=== PATIENT | female | born 1995 | race Caucasian/White ===

== ENCOUNTER 2019-08-28 09:02 | Outpatient (RCR) | payer BC | END 2019-11-01 | LOC: COL.LAB | DX: E34.9 Endocrine disorder, unspecified (principal); N93.9 Abnormal uterine and vaginal bleeding, unspecified; N94.6 Dysmenorrhea, unspecified ==

== ENCOUNTER 2019-08-31 08:05 | Outpatient (RCR) | payer BC | END 2019-11-29 | LOC: COL.LAB | DX: N91.2 Amenorrhea, unspecified (principal) ==

== ENCOUNTER → 2019-10-01 | Outpatient (CLI) | payer BC ==
[2019-10-01 13:03] LABS: FASTING GLUCOSE 96 mg/dL (70-110)
[2019-10-01 13:16] LABS: 1/2 HR GLUCOSE 136 mg/dL (100-170)
[2019-10-01 13:46] LABS: 1 HR GLUCOSE 104 mg/dL (90-160)
[2019-10-04 13:36] LABS: INSULING TOLERANCE 1 HR XXX; INSULING TOLERANCE 2 HR XXX; INSULING TOLERANCE FASTING XXX
== END ==
LOC: COL.LAB 10:57
PROVIDERS: Obstetrics & Gynecology
DX: E28.2 Polycystic ovarian syndrome (principal)

== ENCOUNTER 2021-07-11 17:45 | Outpatient (CLI) | payer BC ==
[~2021-07-11] VITALS: Ht 167.6 cm; Wt 97.7 kg
--- NOTE | 2021-07-11 18:00 | NUR ---
Pt arrived on unit ambulatory and with concerns for SROM. Pt reports leaking fluid since 1700, occasional contractions but denies any vaginal bleeding and reports normal movement. EFM and toco monitors started. Vital signs WNL. SVE by this RN /3 with negative amnio-trace x2. Dr. Bartlett notified. See physician notification for details.
[2021-07-11] MEDS ORDERED: PRENATAL TABLET PO (18:07)
--- NOTE | 2021-07-11 18:30 | NUR ---
Discharge instructions and follow up care reviewed with pt and at the bedside. Both verbalized an understanding, agreed with the plan and states no questions or concerns.
[2021-07-11 18:35] VITALS: BP 114/68; PULSE 92; TEMP 98.2
== END 2021-07-11 18:40 | disposition home or self-care (01) ==
LOC: LDRO 17:45
DX: Z34.93 Encounter for supervision of normal pregnancy, unspecified, third trimester (principal); Z3A.39 39 weeks gestation of pregnancy

== ENCOUNTER 2021-07-13 22:56 | Inpatient (IN) | payer BC ==
[~2021-07-13] VITALS: Ht 167.6 cm; Wt 96.8 kg
[~2021-07-13 22:56] MED LIST: PRENATAL TABLET PO
[2021-07-13 23:10] VITALS: BP 123/67; PULSE 71; TEMP 97.9
--- NOTE | 2021-07-13 23:10 | NUR ---
Pt reports ctx all night last night then "subsided all day and resumed this evening". Bloody show noted on peripad. Pt oriented to room, monitor, plan of care. attentive at bedside. ROM + test performed. SVE as noted.
[2021-07-14] VITALS (16 sets, daily range): BP systolic 106–136; BP diastolic 55–79; PULSE 72–114; TEMP 97.9–98.4
--- NOTE | 2021-07-14 00:20 | NUR ---
SVE with no changes noted, no free fluid, minimal bloody show. Off monitor to move around room.
--- NOTE | 2021-07-14 03:30 | NUR ---
Pt and spouse working together using "Henri Method". Room lights dim, pt moving around room for positions of comfort. Contractions palmate mild-moderate every 2-4 minutes. 0430 Pt declines getting on the bed for monitoring, stating "I was just on the bed " FHT's by doppler while in rocking chair, 130's with audible acceleration.
--- NOTE | 2021-07-14 05:45 | NUR ---
Back to bed for monitoring.0550 declines peanut ball stating "I'm pretty comfortable right now" 0555 Resting quietly with eye closed. attentive at bedside.
--- NOTE | 2021-07-14 06:30 | NUR ---
Report received from CHARLETTE Martins and care assumed. Pt resting in bed and requesting to come off EFM to ambulate and use the birthing ball. Reviewed labor check plan of care and discussed SVE to help determine plan. Pt requesting to sit on the birthing ball for comfort for a little bit before SVE.
--- NOTE | 2021-07-14 07:15 | NUR ---
SVE done by this RN /. Discussion with pt and to determine time of SROM. Pt reports leaking fluid since 07/11, seen on L&D unit with negative amnio-trace and no fluid noted on exam. Pt also reports she was seen in the in office with Dr. Hernandez on Wednesday 07/12 no pooling noted and negative nitrozine test. Pt unable to determine a time when leaking of fluid was different from previous or a large gush of fluid. Information reviewed with Dr. Hardy and it was determined to use time of positive ROM plus test for time of rupture.
[2021-07-14 08:38] LABS: BASO # 0.1 K/mm3 (0.0-0.2); BASO % 0.3 % (0.0-2.0); EOS # 0.1 K/mm3 (0.0-0.7); EOS % 0.5 % (0.0-4.0); GRAN % 89.7 % (42.2-75.2); HEMATOCRIT 38.5 % (37.0-47.0); LYMPH # 0.9 K/mm3 (1.2-3.4); LYMPH % 4.1 % (20.0-51.0); MEAN CELL VOLUME 87 fl (80.0-100.0); MEAN CORPUSCULAR HEMOGLOBIN 29 pg (27-31); MEAN CORPUSCULAR HGB CONC 34 g/dl (33.0-37.0); MONO % 4.6 % (1.7-9.3); PLATELET COUNT 230 K/mm3 (130-400); RED BLOOD COUNT 4.45 M/mm3 (4.10-5.30); REDCELL DISTRIBUTION WIDTH-CV 13.5 % (11.5-14.5)
--- NOTE | 2021-07-14 13:00 | NUR ---
1300- Dr. Hrady at the bedside. SVE done per Dr. Hardy with anterior lip and cervix swelling. 1306- Assisted pt to hands and knees position on bed. This RN remains at the bedside. Frequent attempts to adjust EFM. 1323- Dr. Hardy at the bedside. SVE done with swelling still noted on cervix. Discussed options with pt. 1325- Verbal order for benadryl IV 25mg x1 now received. 1334- Dr. Hardy at the bedside. scalp placed. 1339- Assisted pt to left lateral with right leg in stirrup. 1350- Assisted pt to right lateral with left leg in stirrup. 1359- Dr. Hardy at the bedside. SVE done /+2. Pt set up for delivery. 1401- Pushing started. 1408- of viable male . [place] placed on mom's abdomen. Cords clamped and cut. Care of the given to nursery RN at the bedside. 1415- Straight cath done per Dr. Hardy. 1422- of placenta. Pitocin started at 333ml/hr per order and protocol. Fundus firm and lochia WNL.
--- NOTE | 2021-07-14 16:30 | NUR ---
Pt up to the bathroom with stand by assist and without complications. Pt was not able to void at this time. Angy-care done. Pt transferred to room 207 ambulatory. Oriented to room, bed and call light within reach. Plan of care reviewed.
[2021-07-15 00:15] VITALS: BP 110/64; PULSE 83; TEMP 97.5
[2021-07-15 04:05] VITALS: BP 98/69; PULSE 62; TEMP 97.5
[2021-07-15 07:55] VITALS: BP 110/62; PULSE 78; TEMP 97.6
[2021-07-15] MEDS ORDERED: IBU800 M1 PO (11:33)
[2021-07-15 12:45] VITALS: BP 110/65; PULSE 64; TEMP 97.7
[2021-07-15 16:40] VITALS: BP 111/64; PULSE 77; TEMP 97.9
[2021-07-15 21:00] VITALS: BP 96/50; PULSE 82; TEMP 97.9
[2021-07-16 08:40] VITALS: BP 121/72; PULSE 81; TEMP 97.7
== END 2021-07-16 13:30 | disposition home or self-care (01) | DRG 807 ==
LOC: LDRO 22:56 → LDR 07-14 → LDRO 07-14 07:26 → LDR 07-14 07:27 → OB 07-14 07:27
PROVIDERS: ADMIT Student in an Organized Health Care Education/Training Program
PROC: 10E0XZZ Delivery of Products of Conception, External Approach (ICD-10-PCS; principal; 2021-07-15)
PROC: 0HQ9XZZ Repair Perineum Skin, External Approach (ICD-10-PCS; 2021-07-15)
DX: O99.284 Endocrine, nutritional and metabolic diseases complicating childbirth (principal); Z37.0 Single live birth; E28.2 Polycystic ovarian syndrome; O70.0 First degree perineal laceration during delivery; Z3A.39 39 weeks gestation of pregnancy; Z86.16 Personal history of COVID-19
CPT/HCPCS: J0290; J1200; J2590; J7120

== ENCOUNTER 2023-11-24 17:01 | Emergency (ER) | payer BC ==
[~2023-11-24] VITALS: Ht 167.6 cm; Wt 86.4 kg
[~2023-11-24 17:01] MED LIST changes: +IBU800 M1 PO
[2023-11-24 17:04] VITALS: TEMP 97.9
[2023-11-24 18:30] LABS: BILIRUBIN,TOTAL 0.3 mg/dL (0.2-1.2); CREATININE, serum 0.74 mg/dL (0.57-1.11); TOTAL PROTEIN 7.5 g/dl (6.2-8.1)
[2023-11-24 18:47] LABS: URINE APPEARANCE CLEAR (CLEAR/HAZY); URINE BLOOD NEGATIVE (NEGATIVE); URINE COLOR YELLOW (YELLOW); URINE GLUCOSE NEGATIVE (NEGATIVE); URINE KETONE NEGATIVE (NEGATIVE); URINE NITRATE NEGATIVE (NEGATIVE); URINE PROTEIN(semi-quant) NEGATIVE (NEGATIVE); URINE UROBILINOGEN 0.2 E.U/dL (0.2-1.0)
[2023-11-24 19:08] LABS: BASO % 0.2 % (0.0-2.0); EOS # 0.1 K/mm3 (0.0-0.7); EOS % 0.7 % (0.0-4.0); GRAN # 5.4 K/mm3 (1.4-6.5); GRAN % 67.7 % (42.2-75.2); HEMATOCRIT 40.2 % (37.0-47.0); HEMOGLOBIN 13.6 g/dl (12.5-16.0); LYMPH % 25.2 % (20.0-51.0); MEAN CELL VOLUME 85 fl (80.0-100.0); MEAN CORPUSCULAR HEMOGLOBIN 29 pg (27-31); MEAN CORPUSCULAR HGB CONC 34 g/dl (33.0-37.0); MEAN PLATELET VOLUME 9.9 fl (7.4-10.4); MONO # 0.5 K/mm3 (0.1-0.6); PLATELET COUNT 221 K/mm3 (130-400); RED BLOOD COUNT 4.74 M/mm3 (4.10-5.30); REDCELL DISTRIBUTION WIDTH-CV 12.4 % (11.5-14.5)
[2023-11-24 19:11] LABS: COLLECTION METHOD CLEAN CATCH
[2023-11-24 19:25] VITALS: BP 101/59; PULSE 63
== END 2023-11-24 19:34 | disposition home or self-care (01) ==
LOC: COL.ER 17:01
PROVIDERS: Physician Assistant
DX: O98.511 Other viral diseases complicating pregnancy, first trimester (principal); U07.1 COVID-19; Z3A.11 11 weeks gestation of pregnancy